=== PATIENT | female | born 1960 | race Caucasian/White ===

== ENCOUNTER 2020-12-13 07:56 | Emergency (ER) | payer MEDICAID ==
[~2020-12-13] VITALS: Ht 157.5 cm; Wt 65.8 kg
[2020-12-13] MEDS ORDERED: PROBIOTIC1 EAC3 PO (08:30)
[2020-12-13] MEDS ORDERED: ZESTRIL40 MG PO (08:30)
[2020-12-13] MEDS ORDERED: PRILOSEC OTC20 MG PO (08:30)
[2020-12-13] MEDS ORDERED: AMLODIPINE BESYL5 MG PO (08:31)
[2020-12-13] MEDS ORDERED: CHANTIX1 MG PO (08:31)
[2020-12-13] MEDS ORDERED: FLAGYL500 MG PO (10:49)
[2020-12-13] MEDS ORDERED: CIPRO500 MG PO (10:49)
== END 2020-12-13 10:57 | disposition home or self-care (01) ==
LOC: ED 07:56
DX: K57.32 Diverticulitis of large intestine without perforation or abscess without bleeding (principal); I10 Essential (primary) hypertension; K21.9 Gastro-esophageal reflux disease without esophagitis; F17.200 Nicotine dependence, unspecified, uncomplicated; Z88.0 Allergy status to penicillin; Z88.5 Allergy status to narcotic agent; Z79.899 Other long term (current) drug therapy
CPT/HCPCS: 74177; 80053; 81001; 83690; 85025; 99284-25; 99406; J7030; Q9967